=== PATIENT | female | born 1975 | race African-American/Black ===

== ENCOUNTER 2019-08-10 15:28 | Emergency (ER) | payer SELFPAY | END 2019-08-10 16:10 | disposition home or self-care (01) | LOC: ERS 15:28 | DX: G51.0 Bell's palsy (principal) | CPT/HCPCS: 99283 ==

== ENCOUNTER 2019-10-14 05:58 | Emergency (ER) | payer OTHER | END 2019-10-14 07:20 | disposition home or self-care (01) | LOC: ERS 05:58 | DX: I10 Essential (primary) hypertension (principal); G51.0 Bell's palsy | CPT/HCPCS: 93005 ==